=== PATIENT | male | born 1960 | race African-American/Black ===

== ENCOUNTER → 2024-12-07 08:15 | Outpatient (REF) | payer BC, SELFPAY | LOC: HWRAD 08:15 | PROVIDERS: ATTENDING PHYSICIAN Internal Medicine Cardiovascular Disease; FAMILY PHYSICIAN Family Medicine | DX: I10 Essential (primary) hypertension (principal); I77.9 Disorder of arteries and arterioles, unspecified; R06.09 Other forms of dyspnea | CPT/HCPCS: 93880 ==

== ENCOUNTER → 2024-12-10 08:19 | Outpatient (REF) | payer BC, SELFPAY | LOC: HWRCS 08:19 | PROVIDERS: ATTENDING PHYSICIAN Internal Medicine Cardiovascular Disease; FAMILY PHYSICIAN Family Medicine | DX: I10 Essential (primary) hypertension (principal); I77.9 Disorder of arteries and arterioles, unspecified; R06.09 Other forms of dyspnea | CPT/HCPCS: 78452; 93017; A9500 ==

== ENCOUNTER → 2024-12-15 08:04 | Outpatient (REF) | payer BC, SELFPAY | LOC: RCS 08:04 | PROVIDERS: ATTENDING PHYSICIAN Internal Medicine Cardiovascular Disease; FAMILY PHYSICIAN Family Medicine | DX: I10 Essential (primary) hypertension (principal); I77.9 Disorder of arteries and arterioles, unspecified; R06.09 Other forms of dyspnea | CPT/HCPCS: 93306 ==